=== PATIENT | female | born 1965 | race Caucasian/White ===

== ENCOUNTER → 2018-03-08 09:40 | Outpatient (CLI) | payer OTHER, SELFPAY ==
--- NOTE | 2018-03-08 09:45 | US_ITS ---
US organ site (thyroid) HISTORY: ITS.REASON: THYROID NODULE ORDERING PHYSICIAN: Matisa Troncoso MD PATIENT AGE: 52 years COMPARISON is made to ultrasound of the same day and 08/14/2017. TECHNIQUE: Following obtaining informed consent, using aseptic technique and local anesthesia with buffered lidocaine, fine-needle aspiration was performed of the complex hypoechoic/septated cystic mass in the right lobe of the thyroid gland using sonographic guidance. 3 passes were made into the nodule with a 25-gauge needle. Specimen was given to cytology. A small amount of dark-colored fluid was aspirated and the nodule was smaller following completion of the exam measured approximately 2.2 x 1 cm The patient tolerated the procedure well without evidence of immediate complications and left the ultrasound suite in stable condition. CYTOLOGY:Negative for malignancy. Consistent with benign cystic follicular nodule IMPRESSION: Successful ultrasound-guided FNA of the right lobe of the thyroid gland with cytology showing a benign cystic follicular nodule
--- NOTE | 2018-03-08 09:45 | US_ITS ---
US thyroid HISTORY: ITS.REASON: THYROID NODULE ORDERING PHYSICIAN: Matias Troncoso MD PATIENT AGE: 52 years Comparison: 08/28/2017 FINDINGS: Images obtained of the right lobe of the thyroid gland for prebiopsy planning and compared to an outside exam of 08/28/2017. The right lobe measures 5 x 2.7 cm. There is a 3.5 x 2 cm heterogeneous cystic appearing nodule within the central aspect of the right lobe. This was the nodule which was targeted for biopsy. The nodule has a complex appearance with a multiseptated cystic appearance. The left lobe was not interrogated IMPRESSION: Complex multiseptated 3.5 x 2 cm cystic mass of the right lobe of the thyroid gland.
== END ==
PROVIDERS: PCP Family Medicine; Visit Provider Otolaryngology
DX: D34 Benign neoplasm of thyroid gland (principal)
CPT/HCPCS: 10022; 76536